=== PATIENT | female | born 1945 | race Hispanic/Latino ===

== ENCOUNTER → 2024-02-02 | Outpatient (CLI) | payer OTHER, MEDICARE ==
[~2024-02-02] MED LIST: IOHEXOL 350 MG/ML 100ML INFUS..BTL IV ONE
--- NOTE | 2024-02-02 13:22 | HMCIMG ---
CT ANGIO ABD/PEL PRE AAA 3MM REASON: UTI COMPARISON: None TECHNIQUE: Axial images are obtained from lung bases through the perineum before and during bolus IV contrast infusion. 2-D and 3-D reconstruction images were then performed. FINDINGS: Lung bases are clear. There are no focal liver lesions. Spleen appears normal, the gallbladder has been removed. There are several simple cysts right kidney, largest is 4.4 cm. There is a single cyst left kidney, 3.6 cm. Kidneys appear otherwise unremarkable There are normal-appearing bowel loops. There is no CT evidence of acute appendicitis. There are no focal fluid collections. There is no free air or fluid. There is extensive calcification of the abdominal aorta. Renal and mesenteric artery origins appear preserved. There is no aneurysm or stenosis. Common and external iliac arteries appear widely patent as do both common femoral arteries. There are normal-appearing pelvic soft tissues. There is no fluid in the cul-de-sac. Urinary bladder appears unremarkable. Anterior abdominal wall appears normal as do osseous structures. IMPRESSION: 1. Extensive calcification of aorta, renal and mesenteric artery origins appear preserved. 2. No evidence of aneurysm or stenosis. 3. Bilateral renal cysts. 4. Otherwise unremarkable pre and postcontrast CT abdomen and pelvis.
== END | disposition home or self-care (01) ==
LOC: RAH 11:24
PROVIDERS: ATTEND Student in an Organized Health Care Education/Training Program
DX: N28.1 Cyst of kidney, acquired (principal); N39.0 Urinary tract infection, site not specified; I70.0 Atherosclerosis of aorta
CPT/HCPCS: 74174; Q9967

== ENCOUNTER → 2024-04-05 | Outpatient (CLI) | payer OTHER, MEDICARE ==
[2024-04-05 12:19] LABS: ALBUMIN 3.5 g/dL (3.5-5.0); BILIRUBIN,TOTAL 0.5 mg/dL (0.2-1.0); CREATININE 0.9 mg/dL (0.5-1.0); TOTAL PROTEIN, SERUM 7.7 g/dL (6.0-8.3)
== END | disposition home or self-care (01) ==
LOC: LAB 09:00
PROVIDERS: ATTEND Student in an Organized Health Care Education/Training Program
DX: I21.4 Non-ST elevation (NSTEMI) myocardial infarction (principal)
CPT/HCPCS: 36415; 80053

== ENCOUNTER → 2024-04-12 | Outpatient (CLI) | payer OTHER, MEDICARE ==
[~2024-04-12] MED LIST changes: +metoPROLOL tartRATE 1 MG/ML 5ML VIAL IV ONE
--- NOTE | 2024-04-12 13:23 | HMCIMG ---
CT OF THE CHEST WITH CONTRAST- CT Cardiac Angio co-interpretation This is done as part of the CT cardiac angiogram study. The interpretation of the coronary arteries will be done by manager compensation in a separate report. History: over-read Comparison: none CT Dose Index (CTDI): 77.90 mGy Dose Length Product (DLP): 493.40 total mGy PROTOCOL: Examination is done at 2.5 millimeter volumetric acquisition after contrast administration with Isovue 370, 100 cc IV, without complications. Photography is done at 5 millimeter thick intervals for the thorax. The examination begins above the heart and therefore the lung apices are incompletely included. The rest of the left lung is included but the right lung is only included up to its middle third. The periphery of the right lung is not included in the study. FINDINGS: The visualized part of the airway is preserved. The bony and soft tissue structures of the chest wall are unremarkable. The aorta is unremarkable. No mediastinal lymphadenopathy is seen. The lung windows demonstrate no worrisome pulmonary nodules, masses or infiltrates. There is no evidence of pulmonary embolism in the visualized lung segments. The upper abdominal views are unremarkable. Impression: No significant abnormalities identified.
== END | disposition home or self-care (01) ==
LOC: RAH 09:16
PROVIDERS: ATTEND Student in an Organized Health Care Education/Training Program
DX: I21.4 Non-ST elevation (NSTEMI) myocardial infarction (principal); I47.20 Ventricular tachycardia, unspecified
CPT/HCPCS: 75574; J3490; Q9967

== ENCOUNTER → 2024-06-21 | Outpatient (CLI) | payer OTHER, MEDICARE | END | disposition home or self-care (01) | LOC: SHCH 14:41 | PROVIDERS: ATTEND Student in an Organized Health Care Education/Training Program | DX: R09.89 Other specified symptoms and signs involving the circulatory and respiratory systems (principal) | CPT/HCPCS: 93880 ==